=== PATIENT | male | born 1980 | race Caucasian/White ===

== ENCOUNTER → 2021-05-06 | Outpatient (CLI) | payer BC, OTHER ==
[~2021-05-06] MED LIST: RT-ALBUTEROL SULF 2.5 MG/3 ML PRE-MIX VIAL INH ONE
== END ==
LOC: RT 08:00
PROVIDERS: ATTEND Nurse Practitioner Family
DX: J98.8 Other specified respiratory disorders (principal)
CPT/HCPCS: 94060; 94726; 94729

== ENCOUNTER → 2021-07-11 | Outpatient (CLI) | payer BC, OTHER ==
[~2021-07-11] MED LIST changes: +CATHETER FLUSH 10 ML SYR IVP PRN; -RT-ALBUTEROL SULF 2.5 MG/3 ML PRE-MIX VIAL INH ONE
--- NOTE | 2021-07-11 12:30 | Diagnostic Imaging Report ---
Indication: Epigastric pain. Patient was administered 5.5 mCi technetium 99m Choletec and imaging over the abdomen was performed. At 45 minutes patient ingested 8 ounces of ensure and gallbladder ejection fraction was calculated. Patient denied discomfort during the study. There is homogeneous uptake of activity by the liver with prompt excretion of activity into the gallbladder and common duct. There is normal passage of activity into the small bowel. Gallbladder ejection fraction is normal at 54%. There appears to be is some tracer activity within the stomach consistent with mild bile reflux. IMPRESSION: 1. Patent cystic duct and common bile duct. 2. Normal gallbladder ejection fraction 54%. 3. Mild gastric bile reflux. Dictated by: Dictated on workstation # [id number]
== END ==
LOC: CARD 09:32
PROVIDERS: ATTEND Surgery
DX: K21.9 Gastro-esophageal reflux disease without esophagitis (principal)
CPT/HCPCS: 78227; A9537

== ENCOUNTER 2021-08-21 06:01 | Outpatient (CLI) | payer BC, OTHER ==
[~2021-08-21] VITALS: Ht 172.7 cm; Wt 142.9 kg
[2021-08-21] MEDS ORDERED: ATOR10TA66 PO (09:41)
[2021-08-21] MEDS ORDERED: CETI10TA24 PO (09:41)
[2021-08-21] MEDS ORDERED: GLIP10TA13 PO (09:41)
[2021-08-21] MEDS ORDERED: PANT40TA2 PO (09:41)
[2021-08-21] MEDS ORDERED: MONT-40 PO (09:41)
[2021-08-21] MEDS ORDERED: DULA3PEN SQ (09:41)
[2021-08-21] MEDS ORDERED: RT-ALBUINH IH (09:41)
[2021-08-21] MEDS ORDERED: BUDE10.2 IH (09:41)
[2021-08-21] MEDS ORDERED: EMPA10TA PO (09:41)
== END 2021-08-21 09:48 | disposition home or self-care (01) ==
LOC: PREOP 06:01
PROVIDERS: ATTEND Surgery
DX: Z01.818 Encounter for other preprocedural examination (principal)

== ENCOUNTER 2021-08-29 09:18 | Day surgery (SDC) | payer BC, OTHER ==
[~2021-08-29] VITALS: Ht 172.7 cm; Wt 142.9 kg
[~2021-08-29 09:18] MED LIST changes: +ATOR10TA66 PO; +BUDE10.2 IH; -CATHETER FLUSH 10 ML SYR IVP PRN; +CETI10TA24 PO; +DULA3PEN SQ; +EMPA10TA PO; +GLIP10TA13 PO; +MONT-40 PO; +PANT40TA2 PO; +RT-ALBUINH IH
[2021-08-29] MEDS ORDERED: LACTATED RINGERS 1,000 ML IV STA (09:35)
[2021-08-29 09:44] VITALS: BP 120/90
[2021-08-29] MEDS ORDERED: HURRICAINE EXT TUBE (BENZOCAINE) XX PRN (09:45)
[2021-08-29] MEDS ORDERED: LACTATED RINGERS 1,000 ML IV ONE (09:47)
--- NOTE | 2021-08-29 11:38 | Progress Note-Pre Operative ---
Pre-Operative Progress Note H&P Reviewed The H&P was reviewed, patient examined and no changes noted. Date Seen by Provider: Aug 29, 2021 Time Seen by Provider: 11:37 Date H&P Reviewed: Aug 29, 2021 Time H&P Reviewed: 11:37 Pre-Operative Diagnosis: epigastric pain, hx polyps SEPIDEH GAY DO Aug 29, 2021 11:38
[2021-08-29] MEDS ORDERED: PROPOFOL INJECTION 50 ML IV ONE (11:41)
[2021-08-29] MEDS ORDERED: MIDAZOLAM 2 MG/2 ML (VERSED) VIAL ONE (11:41)
[2021-08-29 12:21] VITALS: BP 108/60
--- NOTE | 2021-08-29 12:22 | Progress Note-Post Operative ---
Post-Operative Progess Note Surgeon (s)/Room Inspector (s) Surgeon SEPIDEH GAY DO Room Inspector: na Pre-Operative Diagnosis epigastric pain, hx polyps Post-Operative Diagnosis gastric polyps, normal colon Procedure & Operative Findings Date of Procedure 08/29/21 Procedure Performed/Findings egd c biopsies, colonoscopy Anesthesia Type per mathematics education professor Estimated Blood Loss Estimated blood loss (mL): none Specimens/Packing Specimens Removed antrum, ge SEPIDEH GAY DO Aug 29, 2021 12:22
[2021-08-29] MEDS ORDERED: SUCR1TAB36 PO (12:23)
--- NOTE | 2021-08-29 12:24 | Discharge Inst-Simple/Standard ---
Discharge Inst-Standard Discharge Medications New, Converted or Re-Newed RX: Transmitted to Pharmacy Patient Instructions/Follow Up Plan of Care/Instructions/FU: 2 week Jesus Activity as Tolerated: Yes Discharge Diet: Regular Diet SEPIDEH GAY DO Aug 29, 2021 12:24
--- NOTE | 2021-08-29 12:33 | Anesthesia-General Post-Op ---
MAC Patient Condition Mental Status/LOC: Same as Preop Cardiovascular: Satisfactory Nausea/Vomiting: Absent Respiratory: Satisfactory Pain: Controlled Complications: Absent Post Op Complications Complications None Follow Up Care/Instructions Patient Instructions None needed. Anesthesiology Discharge Order Discharge Order Patient is doing well, no complaints, stable vital signs, no apparent adverse anesthesia problems. No complications reported per nursing. SWETA MILLER CRNA Aug 29, 2021 12:32
[2021-08-29 12:50] VITALS: BP 124/83
--- NOTE | 2021-08-29 20:47 | OPERATIVE REPORT ---
DATE OF SERVICE: 08/29/2021 PREOPERATIVE DIAGNOSES: Epigastric abdominal pain, history of colon polyps. POSTOPERATIVE DIAGNOSES: Gastric polyps, normal colon. PROCEDURE: EGD with biopsies, colonoscopy. SURGEON: Sepideh Lee DO ANESTHESIA: Per CASING COOKER. ESTIMATED BLOOD LOSS: None. COMPLICATIONS: None. INDICATIONS: The patient is a 41-year-old male with epigastric abdominal pain, history of colon polyps. He understands risks and benefits of procedure and wishes to proceed. Consent was signed in the chart. DESCRIPTION OF PROCEDURE: The patient was taken to the endoscopy suite, placed in left lateral recumbent position. Timeout was performed. Scope was inserted in mouth, down the esophagus, stomach and into the duodenum without difficulty. There were no polyps, masses or ulcerations within the duodenum. Scope was slowly retracted back into the stomach where it was further insufflated. No polyps, masses or ulcerations of the antrum. Biopsy of the antrum was obtained. Scope was retroflexed noting some benign appearing polyps. No hiatal hernia. No other pathology. Scope was returned to its normal position, slowly withdrawn to distal esophagus. No polyps, masses or ulcerations. Slight erythematous changes, may be some reflux esophagitis. Biopsy of the GE junction was obtained. Scope was slowly retracted back until completely removed. Digital rectal exam was performed. No palpable polyps, masses or ulcerations. Scope was inserted in the rectum and advanced all the way to cecum with minimal difficulty. Prep was adequate. Scope was then slowly retracted back. No polyps, masses or ulcerations within the cecum, ascending, transverse, descending and sigmoid colon. Once in the rectum, scope was retroflexed noting no other pathology. Scope was returned to its normal position, slowly withdrawn until completely removed. The patient tolerated procedure well without any complications, taken to recovery room in stable condition. RECOMMENDATIONS: The patient will continue on current medications. We will add Carafate 1 gram four times a day to see how he is doing. If symptoms no better and depending on pathology, we would consider cholecystectomy. The patient will need repeat colonoscopy in five years due to history of colon polyps. Any issues before that be seen at that time. Job ID: [id number] DocumentID: [id number] Dictated Date: 08/29/2021 12:26:46 Natural Gas Technician Date: 08/29/2021 20:47:17 Dictated By: SEPIDEH LEE DO
== END 2021-08-29 12:56 | disposition home or self-care (01) ==
LOC: ENDO 09:18
PROVIDERS: ATTEND Surgery
DX: K31.7 Polyp of stomach and duodenum (principal); K29.50 Unspecified chronic gastritis without bleeding; K31.89 Other diseases of stomach and duodenum; E66.01 Morbid (severe) obesity due to excess calories; Z68.42 Body mass index [BMI] 45.0-49.9, adult; Z86.010 Personal history of colon polyps